=== PATIENT | male | born 1955 | race Asian ===

== ENCOUNTER 2021-04-12 17:38 | Emergency (ER) | payer BC ==
[~2021-04-12] VITALS: Ht 165.1 cm; Wt 54.4 kg
[2021-04-12 18:10] VITALS: BP 160/90
[2021-04-12] MEDS ORDERED: KETOROLAC 60 MG/2 ML VIAL IM ONE (18:30)
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
[2021-04-12] MEDS ORDERED: ACET-8386 PO (19:16)
[2021-04-12] MEDS ORDERED: IBUP-2213 PO (19:16)
--- NOTE | 2021-04-12 19:31 | NUR ---
Patient discharged with v/s stable. Written and verbal after care instructions given and explained. Patient alert, oriented and verbalized understanding of instructions. Ambulatory with steady gait. All questions addressed prior to discharge. ID band removed. Patient advised to follow up with PMD. Rx of NORCO AND MOTRIN given. Patient educated on indication of medication including possible reaction and side effects. Opportunity to ask questions provided and answered.
== END 2021-04-12 19:31 | disposition home or self-care (01) ==
LOC: MED 17:38
DX: S01.81XA Laceration without foreign body of other part of head, initial encounter (principal); W22.8XXA Striking against or struck by other objects, initial encounter; Y93.89 Activity, other specified; Y92.89 Other specified places as the place of occurrence of the external cause; Y99.8 Other external cause status; S20.211A Contusion of right front wall of thorax, initial encounter; X58.XXXA Exposure to other specified factors, initial encounter
CPT/HCPCS: 12011; 71101; 96372; 99283; J1885; 12001